=== PATIENT | female | born 1995 | race Caucasian/White ===

== ENCOUNTER 2020-04-22 17:04 | Emergency (ER) | payer OTHER ==
[~2020-04-22] VITALS: Ht 160 cm; Wt 52.8 kg
[2020-04-22] MEDS ORDERED: PANTOPRAZOLE 40MG VIAL (C9113 PER 1) IV ONE (18:00)
[2020-04-22] MEDS ORDERED: ONDANSETRON 4MG/2ML VIAL IV ONE (18:00)
[2020-04-22] MEDS ORDERED: NS 1,000 ML IV ONE ×2 (18:00→19:15)
[2020-04-22 18:24] LABS: BASO % 0.1 % (0.0-1.0); HEMATOCRIT 42.5 % (36.0-47.0); HEMOGLOBIN 14.2 g/dl (12.0-15.5); LYMPH # 1.3 10^3/uL (1.5-5.0); LYMPH % 8.3 % (24.0-44.0); MEAN CORPUSCULAR HEMOGLOBIN 29.8 pg (27.0-33.0); MEAN CORPUSCULAR HGB CONC 33.4 g/dl (32.0-36.5); MEAN CORPUSCULAR VOLUME 89.1 fl (80.0-96.0); MONO # 0.8 10^3/uL (0.0-0.8); MONO % 5.5 % (0.0-5.0); NEUTROPHILS # 13.1 10^3/uL (1.5-8.5); NEUTROPHILS % 85.6 % (36.0-66.0); PLATELET COUNT, AUTOMATED 284 10^3/uL (150-450); RED BLOOD COUNT 4.77 10^6/uL (4.00-5.40); WHITE BLOOD COUNT 15.3 10^3/uL (4.0-10.0)
[2020-04-22 18:49] LABS: HCG, SERUM QUALITATIVE NEGATIVE (NEGATIVE)
[2020-04-22 18:50] LABS: ALBUMIN 4.7 GM/DL (3.2-5.2); ALT/SGPT 18 U/L (12-78); BILIRUBIN,DIRECT 0.2 MG/DL (0.0-0.2); BILIRUBIN,TOTAL 0.7 MG/DL (0.2-1.0); BLOOD UREA NITROGEN 12 MG/DL (7-18); CALCIUM LEVEL 10.3 MG/DL (8.5-10.1); CARBON DIOXIDE LEVEL 27 MEQ/L (21-32); CHLORIDE LEVEL 105 MEQ/L (98-107); CREATININE FOR GFR 0.91 MG/DL (0.55-1.30); GLOMERULAR FILTRATION RATE > 60.0 (>60); GLUCOSE, FASTING 105 MG/DL (70-100); LIPASE 89 U/L (73-393); POTASSIUM SERUM 3.3 MEQ/L (3.5-5.1); SODIUM LEVEL 141 MEQ/L (136-145); TOTAL PROTEIN 7.6 GM/DL (6.4-8.2)
[2020-04-22] MEDS ORDERED: METOCLOPRAMIDE INJ 10MG/2ML VIAL (J2765 PER 1) IV ONE (19:15)
--- NOTE | 2020-04-22 19:21 | REP ---
INDICATION: Abdominal Pain. COMPARISON: None. TECHNIQUE: Supine and erect views of the abdomen are performed. A PA view of the chest is performed. FINDINGS: There is no evidence of free intraperitoneal air or obstruction. No dilated small bowel loops are seen. IUD is seen in the pelvis. No abnormal calcifications are seen. There is no infiltrate in either lung. The heart mediastinum are within normal limits. IMPRESSION: Negative abdominal series. <Electronically signed by Mata Corrales > 04/22/20 [id number]
[2020-04-22] MEDS ORDERED: ZOFR4TAB16 PO (21:21)
[2020-04-22 21:26] VITALS: BP 111/65
[2020-04-23] MEDS ORDERED: ONDA4TAB6 PO (19:14)
[2020-04-23] MEDS ORDERED: PROM25SU3 PR (19:14)
== END 2020-04-22 21:44 | disposition home or self-care (01) ==
LOC: M ED 17:04
DX: R11.15 Cyclical vomiting syndrome unrelated to migraine (principal); F17.200 Nicotine dependence, unspecified, uncomplicated
CPT/HCPCS: 74021; 80048; 80076; 81001; 83690; 84703; 85025; 96361; 96374; 96375; 99284; C9113; J2405; J2765

== ENCOUNTER 2020-04-23 16:18 | Emergency (ER) | payer OTHER ==
[~2020-04-23] VITALS: Ht 160 cm; Wt 52.3 kg
[~2020-04-23 16:18] MED LIST: ZOFR4TAB16 PO
[2020-04-23] MEDS ORDERED: NS 1,000 ML IV ONE (17:00)
[2020-04-23] MEDS ORDERED: ONDANSETRON 4MG/2ML VIAL IV ONE (17:00)
[2020-04-23] MEDS ORDERED: ISOVUE-370 76% 100ML VIAL As Ordered ONE (17:05)
[2020-04-23 17:20] LABS: BASO % 0.1 % (0.0-1.0); HEMATOCRIT 41.7 % (36.0-47.0); HEMOGLOBIN 13.5 g/dl (12.0-15.5); LYMPH # 1.9 10^3/uL (1.5-5.0); LYMPH % 17.5 % (24.0-44.0); MEAN CORPUSCULAR HEMOGLOBIN 29.6 pg (27.0-33.0); MEAN CORPUSCULAR HGB CONC 32.4 g/dl (32.0-36.5); MEAN CORPUSCULAR VOLUME 91.4 fl (80.0-96.0); MONO # 0.7 10^3/uL (0.0-0.8); MONO % 6.4 % (0.0-5.0); NEUTROPHILS # 8.3 10^3/uL (1.5-8.5); NEUTROPHILS % 75.4 % (36.0-66.0); PLATELET COUNT, AUTOMATED 245 10^3/uL (150-450); RED BLOOD COUNT 4.56 10^6/uL (4.00-5.40)
--- NOTE | 2020-04-23 17:37 | REPVR ---
PROCEDURE INFORMATION: Exam: CT Abdomen And Pelvis With Contrast Exam date and time: 04/23/2020 5:22 PM Age: 25 years old Clinical indication: Abdominal pain; Additional info: Abd pain with n/v R/O infectious process TECHNIQUE: Imaging protocol: Computed tomography of the abdomen and pelvis with intravenous contrast. Radiation optimization: All CT scans at this facility use at least one of these dose optimization techniques: automated exposure control; mA and/or kV adjustment per patient size (includes targeted exams where dose is matched to clinical indication); or iterative reconstruction. Contrast material: ISO 370; Contrast volume: 100 ml; Contrast route: INTRAVENOUS (IV); COMPARISON: CO Abdomen,Flat Upright,PA CHEST 04/22/2020 6:53 PM FINDINGS: Liver: Suggestion of periportal halos which may represent periportal edema. There is a diffuse decrease in hepatic parenchymal density, consistent with steatosis. Gallbladder and bile ducts: Normal. No calcified stones. No ductal dilation. Pancreas: Normal. No ductal dilation. Spleen: Normal. No splenomegaly. Adrenal glands: Normal. No mass. Kidneys and ureters: 7 mm simple cyst right kidney. No follow-up suggested. Stomach and bowel: Unremarkable. No obstruction. No mucosal thickening. Appendix: No evidence of appendicitis. Intraperitoneal space: There is a small amount of free intraperitoneal fluid present. Pericholecystic fluid consistent with the presence of ascites. No calculi or wall thickening demonstrated. Vasculature: Unremarkable. No abdominal aortic aneurysm. Lymph nodes: Unremarkable. No enlarged lymph nodes. Urinary bladder: Unremarkable as visualized. Reproductive: IUD demonstrated centrally within the uterus. 8 mm cyst in the left vaginal wall. Bones/joints: Unremarkable. No acute fracture. Soft tissues: There is a very small umbilical hernia. There is no evidence of incarceration. Other findings: Shallow levoscoliosis. IMPRESSION: 1. There is a small amount of free intraperitoneal fluid present. 2. Possible periportal edema which can be seen in patients with congestive heart failure, hepatitis, cliff obstruction, cholangitis, biliary cirrhosis, acute pyelonephritis and in trauma. 3. There is a diffuse decrease in hepatic parenchymal density, consistent with steatosis. 4. Pericholecystic fluid consistent with the presence of ascites. No calculi or wall thickening demonstrated. COMMENTS: Consistent with the [employer]'s Incidental Findings Committee white paper (J [employer] 2018): Any incidental renal lesion less than 1 cm or classified as too small to characterize, or any incidental cystic renal lesion characterized as simple-appearing, is likely benign. No follow-up imaging is recommended for these lesions per consensus recommendations based on imaging criteria. Electronically signed by: Alfa Robles On 04/23/2020 17:37:45 PM
[2020-04-23 17:41] LABS: ALBUMIN 4.2 GM/DL (3.2-5.2); ALT/SGPT 18 U/L (12-78); BILIRUBIN,DIRECT 0.2 MG/DL (0.0-0.2); BILIRUBIN,TOTAL 0.6 MG/DL (0.2-1.0); LIPASE 90 U/L (73-393); TOTAL PROTEIN 7.1 GM/DL (6.4-8.2)
[2020-04-23] MEDS ORDERED: METOCLOPRAMIDE INJ 10MG/2ML VIAL (J2765 PER 1) IV ONE (17:45)
[2020-04-23 18:18] LABS: AMPHETAMINES LEVEL URINE NEGATIVE (NEGATIVE); BARBITURATES URINE NEGATIVE (NEGATIVE); BENZODIAZEPINES URINE NEGATIVE (NEGATIVE); CANNABINOIDS URINE POSITIVE (NEGATIVE); COCAINE METABOLITE URINE NEGATIVE (NEGATIVE); METHADONE URINE NEGATIVE (NEGATIVE); OPIATES URINE NEGATIVE (NEGATIVE); PHENCYCLIDINE URINE NEGATIVE (NEGATIVE)
--- NOTE | 2020-04-23 18:56 | REPVR ---
PROCEDURE INFORMATION: Exam: US Abdomen, Limited; Right Upper Quadrant Exam date and time: 04/23/2020 6:21 PM Age: 25 years old Clinical indication: Abdominal pain; Acute; Additional info: Ruq pain TECHNIQUE: Imaging protocol: US abdomen. Real time ultrasound with image documentation. Limited exam focused on the right upper quadrant. COMPARISON: CT ABD/PEL W/IV CONTRAST ONLY 04/23/2020 5:09 PM FINDINGS: Liver: Subtle increased echogenicity demonstrated in the periportal regions, finding which may indicate the presence of periportal edema. Gallbladder: Trace pericholecystic fluid. No calculi, or sludge. Gallbladder otherwise unremarkable. Common bile duct: The common bile duct measures 3.6 mm. No mass or choledocholithiasis. Pancreas: Visualized pancreas is unremarkable. Right kidney: Right kidney measures 10.5 x 5.7 x 3.9 cm. IMPRESSION: 1. Trace pericholecystic fluid. Gallbladder otherwise unremarkable. 2. Subtle increased echogenicity demonstrated in the periportal regions, finding which may indicate the presence of periportal edema. Electronically signed by: Alfa Robles On 04/23/2020 18:56:42 PM
[2020-04-23 19:00] LABS: HEPATITIS B SURFACE ANTIGEN NEGATIVE (NEGATIVE)
[2020-04-23] MEDS ORDERED: ONDA4TAB6 PO (19:14)
[2020-04-23] MEDS ORDERED: PROM25SU3 PR (19:14)
[2020-04-23 19:28] LABS: HEPATITIS B CORE ANTIBODY IGM NEGATIVE (NEGATIVE)
[2020-04-23 19:30] LABS: HEPATITIS A ANTIBODY IGM NEGATIVE (NEGATIVE)
[2020-04-23] MEDS ORDERED: PROMETHAZINE INJ 25 MG/ML VIAL (J2550) IV ONE (19:45)
[2020-04-23 20:00] VITALS: BP 132/85
--- NOTE | 2020-04-25 07:57 | ED PDOC ---
Post-Departure Follow-Up dr stark faxed formal report of liver us for fu Tasneem Fernandez MD Apr 25, 2020 07:57
== END 2020-04-23 20:04 | disposition home or self-care (01) ==
LOC: M ED 16:18
DX: R11.2 Nausea with vomiting, unspecified (principal); J45.909 Unspecified asthma, uncomplicated; Z87.442 Personal history of urinary calculi; Z84.1 Family history of disorders of kidney and ureter
CPT/HCPCS: 74177; 76705; 80047; 80076; 80307; 81001; 83690; 85025; 86705; 86709; 86803; 87340; 96374; 96375; 99284; J2405; J2765; Q9967

== ENCOUNTER 2020-04-26 12:07 | Emergency (ER) | payer OTHER ==
[~2020-04-26] VITALS: Ht 160 cm; Wt 53.3 kg
[~2020-04-26 12:07] MED LIST changes: +ONDA4TAB6 PO; +PROM25SU3 PR
[2020-04-26 12:08] VITALS: BP 132/83
== END 2020-04-26 14:03 | disposition home or self-care (01) ==
LOC: M ED 12:07
DX: R11.2 Nausea with vomiting, unspecified (principal); J45.909 Unspecified asthma, uncomplicated; Z20.828 Contact with and (suspected) exposure to other viral communicable diseases; Z87.442 Personal history of urinary calculi
CPT/HCPCS: 99282; U0003

== ENCOUNTER 2020-09-02 19:16 | Emergency (ER) | payer OTHER ==
[~2020-09-02] VITALS: Ht 162.6 cm; Wt 55.0 kg
[2020-09-02] MEDS ORDERED: MIRT1TAB15 PO (19:24)
[2020-09-02] MEDS ORDERED: AMPH1CAP14 PO (19:24)
[2020-09-02] MEDS ORDERED: NS 1,000 ML IV ONE (20:25)
[2020-09-02] MEDS ORDERED: ONDANSETRON 4MG/2ML VIAL IV ONE (20:25)
[2020-09-02 20:27] LABS: BASO # 0.1 10^3/uL (0.0-0.2); BASO % 0.6 % (0.0-1.0); EOS # 0.1 10^3/uL (0.0-0.5); EOS % 1.1 % (0.0-3.0); HEMATOCRIT 44.8 % (36.0-47.0); HEMOGLOBIN 15.5 g/dl (12.0-15.5); LYMPH # 2.6 10^3/uL (1.5-5.0); LYMPH % 29.5 % (24.0-44.0); MEAN CORPUSCULAR HEMOGLOBIN 30.5 pg (27.0-33.0); MEAN CORPUSCULAR HGB CONC 34.6 g/dl (32.0-36.5); MEAN CORPUSCULAR VOLUME 88.2 fl (80.0-96.0); MONO # 0.9 10^3/uL (0.0-0.8); MONO % 9.9 % (2.0-8.0); NEUTROPHILS # 5.2 10^3/uL (1.5-8.5); NEUTROPHILS % 58.7 % (36.0-66.0); PLATELET COUNT, AUTOMATED 281 10^3/uL (150-450); RED BLOOD COUNT 5.08 10^6/uL (4.00-5.40); WHITE BLOOD COUNT 8.9 10^3/uL (4.0-10.0)
[2020-09-02 20:46] VITALS: BP 125/88
[2020-09-02 20:57] LABS: ALBUMIN 4.3 GM/DL (3.2-5.2); ALT/SGPT 14 U/L (12-78); BILIRUBIN,DIRECT 0.2 MG/DL (0.0-0.2); BILIRUBIN,TOTAL 0.8 MG/DL (0.2-1.0); BLOOD UREA NITROGEN 15 MG/DL (7-18); CALCIUM LEVEL 9.9 MG/DL (8.5-10.1); CARBON DIOXIDE LEVEL 28 MEQ/L (21-32); CHLORIDE LEVEL 99 MEQ/L (98-107); CREATININE FOR GFR 0.81 MG/DL (0.55-1.30); GLOMERULAR FILTRATION RATE > 60.0 (>60); GLUCOSE, FASTING 97 MG/DL (70-100); LIPASE 93 U/L (73-393); POTASSIUM SERUM 3.3 MEQ/L (3.5-5.1); SODIUM LEVEL 137 MEQ/L (136-145); TOTAL PROTEIN 7.6 GM/DL (6.4-8.2)
[2020-09-02 20:59] LABS: HCG, SERUM QUALITATIVE NEGATIVE (NEGATIVE)
== END 2020-09-02 21:48 | disposition home or self-care (01) ==
LOC: M ED 19:16
DX: R11.2 Nausea with vomiting, unspecified (principal); J45.909 Unspecified asthma, uncomplicated; Z79.899 Other long term (current) drug therapy; F12.20 Cannabis dependence, uncomplicated
CPT/HCPCS: 80048; 80076; 81001; 83690; 84703; 85025; 96361; 96374; 99284; J2405

== ENCOUNTER → 2021-05-06 | Outpatient (REF) | payer OTHER ==
[~2021-05-06] MED LIST changes: +AMPH1CAP14 PO; +MIRT1TAB15 PO
== END ==
LOC: M LAB REF 15:14
PROVIDERS: ATTEND Orthopaedic Surgery
DX: M67.431 Ganglion, right wrist (principal)

== ENCOUNTER → 2023-12-15 | Outpatient (CLI) | payer OTHER ==
[~2023-12-15] MED LIST changes: +ONDA-282 PO; -ONDA4TAB6 PO
== END ==
LOC: M SOG 07:55
PROVIDERS: ATTEND Physician Assistant
DX: M79.644 Pain in right finger(s) (principal)

== ENCOUNTER 2024-02-18 13:32 | Emergency (ER) | payer OTHER ==
[~2024-02-18] VITALS: Ht 162.6 cm; Wt 78.7 kg
[2024-02-18] MEDS ORDERED: ARIP1TAB10 (13:46)
[2024-02-18] MEDS ORDERED: BUSP10TA79 (13:46)
[2024-02-18] MEDS ORDERED: AMPH1CAP16 (13:46)
[2024-02-18 17:52] LABS: BASO % 0.2 % (0.0-1.0); EOS % 0.2 % (0.0-3.0); HEMATOCRIT 38.4 % (36.0-47.0); HEMOGLOBIN 13.2 g/dl (12.0-15.5); LYMPH # 2.1 10^3/uL (1.5-5.0); LYMPH % 20.2 % (24.0-44.0); MEAN CORPUSCULAR HEMOGLOBIN 31.4 pg (27.0-33.0); MEAN CORPUSCULAR HGB CONC 34.4 g/dl (32.0-36.5); MEAN CORPUSCULAR VOLUME 91.2 fl (80.0-96.0); MONO # 1.2 10^3/uL (0.0-0.8); MONO % 11.7 % (2.0-8.0); NEUTROPHILS % 67.3 % (36.0-66.0); PLATELET COUNT, AUTOMATED 267 10^3/uL (150-450); RED BLOOD COUNT 4.21 10^6/uL (4.00-5.40); WHITE BLOOD COUNT 10.3 10^3/uL (4.0-10.0)
[2024-02-18 18:17] LABS: LIPASE 27 U/L (12-53)
[2024-02-18 18:19] LABS: ALBUMIN 3.6 G/DL (3.2-5.2); ALKALINE PHOSPHATASE 134 U/L (46-116); ALT/SGPT 14 U/L (7.0-40); AST/SGOT 8 U/L (<34); BILIRUBIN,DIRECT 0.2 MG/DL (<0.4); BILIRUBIN,TOTAL 0.5 MG/DL (0.3-1.2); BLOOD UREA NITROGEN 8 MG/DL (9-23); CALCIUM LEVEL 9.2 MG/DL (8.5-10.1); CARBON DIOXIDE LEVEL 26 MMOL/L (20-31); CHLORIDE LEVEL 104 MMOL/L (98-107); CREATININE FOR GFR 0.81 MG/DL (0.55-1.30); GLOMERULAR FILTRATION RATE > 60.0 (>60); GLUCOSE, FASTING 91 MG/DL (60-100); HCG, SERUM QUALITATIVE NEGATIVE (NEGATIVE); POTASSIUM SERUM 3.7 MMOL/L (3.5-5.1); SODIUM LEVEL 134 MMOL/L (136-145); TOTAL PROTEIN 6.8 G/DL (5.7-8.2)
[2024-02-18] MEDS ORDERED: ISOVUE-370 76% 100ML VIAL As Ordered ONE (18:36)
[2024-02-18] MEDS: ACETAMINOPHEN *IV* 1,000 MG in IV 1 EA IV ONE (19:10)
[2024-02-18] MEDS: NS 1,000 ML IV ONE (19:32)
[2024-02-18] MEDS: cefTRIAXone SOD 1 GM in D5W MINI-BAG PLUS 50 ML IV ONE (19:33)
[2024-02-18] MEDS ORDERED: SULF1TAB23 PO (20:18)
[2024-02-18] MEDS: BACTRIM 160MG/800MG DS TAB PO ONE (20:26)
[2024-02-18 20:49] VITALS: BP 112/69; TEMP 97.4; O2SAT 96
== END 2024-02-18 20:49 | disposition home or self-care (01) ==
LOC: M ED 13:32
DX: N10 Acute pyelonephritis (principal); J45.909 Unspecified asthma, uncomplicated; F12.10 Cannabis abuse, uncomplicated; Z79.899 Other long term (current) drug therapy
CPT/HCPCS: 74177; 80048; 80076; 81001; 83690; 84703; 85025; 87088; 87186; 96365; 96366; 99284; J0131; J0696; Q9967

== ENCOUNTER → 2024-10-05 | Outpatient (CLI) | payer OTHER ==
[~2024-10-05] MED LIST changes: +AMPH1CAP16; +ARIP1TAB10; +BUSP10TA79; +CIPR500T39 PO; +SULF1TAB23 PO
== END ==
LOC: M SOG 14:30
PROVIDERS: ATTEND Physician Assistant
DX: M25.531 Pain in right wrist (principal)

== ENCOUNTER → 2024-12-14 | Day surgery (SDC) | payer OTHER ==
[~2024-12-14] VITALS: Ht 160 cm; Wt 68.0 kg
== END | disposition home or self-care (01) ==
LOC: M SDC 08:23
PROVIDERS: ATTEND Orthopaedic Surgery Hand Surgery
DX: L98.9 Disorder of the skin and subcutaneous tissue, unspecified (principal); Z53.8 Procedure and treatment not carried out for other reasons

== ENCOUNTER 2025-01-21 10:47 | Day surgery (SDC) | payer OTHER ==
[~2025-01-21] VITALS: Ht 160 cm; Wt 76.7 kg
[~2025-01-21 10:47] MED LIST changes: -AMPH1CAP16; +AMPH1CAP16 PO; -ARIP1TAB10; +ARIP1TAB10 PO; +BUSP15TA47 PO
[2025-01-21] MEDS ORDERED: MIDAZOLAM INJ 2 MG/2 ML VIAL As Ordered ONE (10:49)
[2025-01-21] MEDS ORDERED: LIDOCAINE 2% 100 MG/5 ML SDV (FOR ANES.) As Ordered ONE (10:49)
[2025-01-21] MEDS ORDERED: ACETAMINOPHEN 1000MG/100ML IV BAG As Ordered ONE (10:50)
[2025-01-21] MEDS ORDERED: ONDANSETRON 4MG 2ML VIAL As Ordered ONE (10:50)
[2025-01-21] MEDS ORDERED: dexAMETHasone 4 MG/ML 1 ML VIAL As Ordered ONE (10:50)
[2025-01-21] MEDS ORDERED: LR 1,000 ML IV SCH (11:10)
[2025-01-21] MEDS ORDERED: KETOROLAC 30 MG/ML 1 ML VIAL As Ordered ONE (12:49)
[2025-01-21] MEDS ORDERED: ONDANSETRON 4MG 2ML VIAL IV PRN (13:00)
[2025-01-21 13:44] VITALS: BP 111/58; TEMP 96.9; O2SAT 100
== END 2025-01-21 14:01 | disposition home or self-care (01) ==
LOC: M SDC 10:47
PROVIDERS: ATTEND Orthopaedic Surgery Hand Surgery
DX: M67.431 Ganglion, right wrist (principal); F41.9 Anxiety disorder, unspecified; F90.9 Attention-deficit hyperactivity disorder, unspecified type; F32.A Depression, unspecified; Z79.899 Other long term (current) drug therapy; Z90.89 Acquired absence of other organs
CPT/HCPCS: 25111; 81025; 88305; J0131; J0665; J0690; J1100; J1885; J2250; J2405; J3010

== ENCOUNTER → 2025-04-04 | Outpatient (REF) | payer MEDICAID, OTHER ==
[2025-04-04 16:45] LABS: BASO # 0.1 10^3/uL (0.0-0.2); BASO % 0.7 % (0.0-1.0); EOS # 0.1 10^3/uL (0.0-0.5); EOS % 1.4 % (0.0-3.0); LYMPH # 2.3 10^3/uL (1.5-5.0); LYMPH % 27.1 % (24.0-44.0); MONO # 0.7 10^3/uL (0.0-0.8); MONO % 8.7 % (2.0-8.0); NEUTROPHILS # 5.2 10^3/uL (1.5-8.5); NEUTROPHILS % 61.6 % (36.0-66.0); PLATELET COUNT, AUTOMATED 304 10^3/uL (150-450)
[2025-04-04 17:09] LABS: ALT/SGPT 11 U/L (7.0-40); AST/SGOT 15 U/L (<34); CALCIUM LEVEL 9.8 MG/DL (8.5-10.1); CARBON DIOXIDE LEVEL 29 MMOL/L (20-31); CHLORIDE LEVEL 106 MMOL/L (98-107); CHOLESTEROL LEVEL 202 MG/DL (<200); CHOLESTEROL RISK RATIO 3.63 (<5); CREATININE FOR GFR 0.83 MG/DL (0.55-1.30); GLOMERULAR FILTRATION RATE > 90.0 (>60); IRON (FE) 61 UG/DL (50-170); LDL CHOLESTEROL 125.2 MG/DL (<100); NON-HDL-C 146.4 MG/DL; PERCENT SATURATION 18.0 % (13.2-45.0); POTASSIUM SERUM 4.4 MMOL/L (3.5-5.1); SODIUM LEVEL 139 MMOL/L (136-145); TRIGLYCERIDES LEVEL 106 MG/DL (<150)
== END ==
LOC: M LAB REF 16:19
PROVIDERS: ATTEND Student in an Organized Health Care Education/Training Program
DX: Z00.00 Encounter for general adult medical examination without abnormal findings (principal); D64.9 Anemia, unspecified

== ENCOUNTER → 2025-04-22 | Outpatient (REF) | payer OTHER ==
[~2025-04-22] MED LIST changes: +SULF-7 PO; -SULF1TAB23 PO
== END ==
LOC: M LAB REF 16:13
PROVIDERS: ATTEND Student in an Organized Health Care Education/Training Program
DX: R79.89 Other specified abnormal findings of blood chemistry (principal)

== ENCOUNTER → 2025-04-30 | Outpatient (CLI) | payer OTHER | LOC: M SOG 07:48 | PROVIDERS: ATTEND Physician Assistant | DX: M25.531 Pain in right wrist (principal) ==